=== PATIENT | male | born 1965 | race American Indian/Alaskan Native ===

== ENCOUNTER 2016-05-29 19:44 | Emergency (ER) | payer MEDICAID ==
[2016-05-29 20:26] VITALS: BP 138/90
[2016-05-30] MEDS ORDERED: BACTRIM DS PO ONE (01:38)
[2016-05-30] MEDS ORDERED: KEFLEX PO ONE (01:39)
[2016-05-30] MEDS ORDERED: XYLOCAINE 2%/EPI 1:100,000 INFILTRATI ONE (01:39)
[2016-05-30] MEDS ORDERED: MOTRIN PO ONE (01:39)
--- NOTE | 2016-05-30 02:44 | Emergency Department Report ---
HPI - General Chief Complaint: Animal Bite Time Seen by Provider: 05/30/16 00:46 - HPI HPI: 50-year-old male past medical history none presents with complaint of 2 weeks of small abscess to the left lateral calf region and left thigh region. Patient states he may have been bitten by a spider, has noticed some spontaneous pus drainage from site, tender to touch. Denies any fever or chills no significant swelling of extremity, ambulating well without any assistance. States he saw a spider in his home near his bedroom but has not actually seen 1 biting his skin actively. ED Past Medical Hx - Surgical History Additional Surgical History: Facial Surgery 1987 - Social History Smoking Status: Never Smoker Substance Use Type: None - Medications Home Medications: Home Medications Medication Instructions Recorded Confirmed Last Taken Type Azithromycin [Zithromax Z-OSCAR] 250 mg PO DAILY #1 pkg 08/02/14 Unknown Rx Loratadine [Claritin] 10 mg PO DAILY #30 tablet 08/02/14 Unknown Rx Promethazine /Codeine 5 ml PO Q6H PRN #150 ml 08/02/14 Unknown Rx [Phenergan/Codeine 6.25-10 mg/5 ml] predniSONE [Deltasone] 40 mg PO QDAY #10 tab 08/02/14 Unknown Rx HYDROcodone/APAP 7.5-325 [[place] 1 each PO Q6HR PRN #20 tablet 01/13/15 Unknown Rx 7.5/325] Ibuprofen [Motrin 600 MG tab] 600 mg PO Q8H PRN #40 tablet 01/13/15 Unknown Rx Neomy/Polymyx B/Hc (Otic) Soln 4 drops OD TID #1 bottle 07/02/15 Unknown Rx [Cortisporin (Otic) Soln] Cephalexin [Keflex] 500 mg PO BID #14 capsule 05/30/16 Unknown Rx Ibuprofen [Motrin] 600 mg PO Q8H PRN #25 tablet 05/30/16 Unknown Rx Sulfamethoxazole/Trimethoprim 1 each PO BID #14 tablet 05/30/16 Unknown Rx [Bactrim DS TAB] ED Review of Systems ROS: Stated complaint: SPIDER BITE LEFT LEG Other details as noted in HPI Constitutional: denies: chills, fever Eyes: denies: eye pain, eye discharge, vision change ENT: denies: ear pain, throat pain Respiratory: denies: cough, shortness of breath, wheezing Cardiovascular: denies: chest pain, palpitations Endocrine: no symptoms reported Gastrointestinal: denies: abdominal pain, nausea, diarrhea Genitourinary: denies: urgency, dysuria Musculoskeletal: denies: back pain, joint swelling, arthralgia Skin: denies: rash, lesions Neurological: denies: headache, weakness, paresthesias Psychiatric: denies: anxiety, depression Hematological/Lymphatic: denies: easy bleeding, easy bruising Physical Exam - Physical Exam Vital Signs: Vital Signs 05/29/16 20:23 Temperature 98.9 F Pulse Rate 103 H Respiratory 20 Rate Blood Pressure 138/90 O2 Sat by Pulse 98 Oximetry General: General: Well appearing, well nourished, in no distress. Oriented x 3, normal mood and affect .Ambulating without difficulty. Skin: Good turgor, no rash, unusual bruising or prominent lesions Head: Normocephalic, atraumatic, no visible or palpable masses, depressions, or scaring. Neck: Supple, without lesions, bruits, or adenopathy, thyroid non-enlarged and non-tender Heart: No cardiomegaly or thrills; regular rate and rhythm, no murmur or gallop Lungs: Clear to auscultation and percussion Abdomen: Bowel sounds normal, no tenderness, organomegaly, masses, or hernia Extremities: Small 1-2 cm abscess left lateral calf region, small 1-2 cm abscess left lateral thigh region. Tiny amount of fluctuance at each site. No significant amount of cellulitis No amputations or deformities, cyanosis, edema or varicosities, peripheral pulses intact Musculoskeletal: Normal gait and station. No misalignment, asymmetry, crepitation, defects, tenderness, masses, effusions, decreased range of motion, instability, atrophy or abnormal strength or tone in the head, neck, spine, ribs, pelvis or extremities. Neurologic: CN 2-12 normal. ED Course Vital Signs 05/29/16 20:23 Temperature 98.9 F Pulse Rate 103 H Respiratory 20 Rate Blood Pressure 138/90 O2 Sat by Pulse 98 Oximetry - I & D Left Lateral Leg Site: left lateral calf and left lateral thigh Blade Size: 11 I & D Procedure: betadine prep Progress: Area anesthetized with lidocaine with epinephrine. Small incisions made with 11 blade, tiny amount of purulent drainage from both sites, covered in 4 x 4 gauze, no packing placed procedure tolerated well minimal bleeding. - Laceration /Wound Repair Left Lateral Leg Wound Length (cm): 2 Wound Explored: clean Betadine Prep?: Yes Anesthesia: 1% Lidocaine ED Medical Decision Making - Medical Decision Making A/P: Abscesses, insect bites 1-Bactrim and Keflex twice a day 1 week. Small surrounding areas of erythema by both sites will cover empirically 2-Motrin 600 mg when necessary for pain 3-I advised patient to return to the ED if abscess reaccumulate's if leg becomes red erythematous and cellulitic, if he develops fever or chills 4-follow-up with primary care doctor Critical care attestation.: If time is entered above; I have spent that time in minutes in the direct care of this critically ill patient, excluding procedure time. ED Disposition Clinical Impression: Abscess Disposition: DISCHARGED TO HOME OR SELFCARE Is pt being admited?: No Does the pt Need Aspirin: No Condition: Stable Instructions: Abscess Incision and Drainage (ED), Cellulitis (ED) Prescriptions: Sulfamethoxazole/Trimethoprim [Bactrim DS TAB] 1 each PO BID #14 tablet Cephalexin [Keflex] 500 mg PO BID #14 capsule Ibuprofen [Motrin] 600 mg PO Q8H PRN #25 tablet PRN Reason: Pain Referrals: PRIMARY CARE, [Primary Care Provider] - 3-5 Days [facility] [Outside] - 3-5 Days Forms: Work/School Release Form(ED) Time of Disposition: 02:46
== END 2016-05-30 02:52 | disposition home or self-care (01) ==
LOC: ED 19:44
DX: L02.416 Cutaneous abscess of left lower limb (principal)

== ENCOUNTER 2016-10-13 00:32 | Emergency (ER) | payer MEDICAID ==
[2016-10-13 00:47] VITALS: BP 154/98
--- NOTE | 2016-10-13 03:08 | Emergency Department Report ---
Eye Injury/Foreign Body - HPI Eye Location: Left Severity: Moderate Eye Symptoms: Eye Pain: Yes, Blurred Vision: No, Eye Redness: Yes, Grinding/ Hammering Metal: No, Contact Lens Use: No, Recalls Injury: No, Photophobia: No Other History: Patient comes into the ER today with complaints of left eye pain for the past 2 weeks. Patient denies any injury. Patient denies any visual changes. Patient denies any nasal or sinus congestion. Patient does state that the eye has been watering clear fluid for the past couple weeks and is more tender medially near his nose. Patient denies any fever, chills, nosebleeds. Patient did buy some [id number] eyedrops today and states they have not been anything to help. ED Review of Systems ROS: Stated complaint: LEFT EYE PAIN Other details as noted in HPI Constitutional: denies: chills, fever Eyes: denies: eye pain, eye discharge, vision change ENT: denies: ear pain, throat pain, dental pain, epistaxis, congestion Respiratory: denies: cough, shortness of breath, wheezing Cardiovascular: denies: chest pain, palpitations Endocrine: no symptoms reported Gastrointestinal: denies: abdominal pain, nausea, diarrhea Genitourinary: denies: urgency, dysuria Musculoskeletal: denies: back pain, joint swelling, arthralgia Skin: denies: rash, lesions Neurological: denies: headache, weakness, paresthesias Psychiatric: denies: anxiety, depression Hematological/Lymphatic: denies: easy bleeding, easy bruising ED Past Medical Hx - Surgical History Additional Surgical History: Facial Surgery 1987 - Social History Smoking Status: Current Every Day Smoker Substance Use Type: None - Medications Home Medications: Home Medications Medication Instructions Recorded Confirmed Last Taken Type Cephalexin [Keflex] 500 mg PO TID #30 capsule 10/13/16 Unknown Rx Polymyxin B Sulf/Trimethoprim 2 drop OP TID #10 ml 10/13/16 Unknown Rx [Polytrim Eye Drops 77406rzlav/0.1%] traMADol [Ultram 50 MG tab] 50 mg PO Q4HR PRN #30 tablet 10/13/16 Unknown Rx Eye Injury Exam - Exam General: Vital signs noted. No distress. Alert and acting appropriately. ED Course Vital Signs 10/13/16 00:45 Temperature 97.8 F Pulse Rate 78 Respiratory 20 Rate Blood Pressure 154/98 O2 Sat by Pulse 99 Oximetry ED Medical Decision Making - Medical Decision Making Patient is nontoxic and hemodynamically stable. Patient's physical exam is consistent with left eye dacryocystitis. I will start patient on antibiotics accordingly and refer patient to ophthalmology as needed. Patient is stable for discharge and is agreement with treatment plan. Critical care attestation.: If time is entered above; I have spent that time in minutes in the direct care of this critically ill patient, excluding procedure time. ED Disposition Clinical Impression: Dacryocystitis, left Disposition: DISCHARGED TO HOME OR SELFCARE Is pt being admited?: No Does the pt Need Aspirin: No Condition: Good Instructions: Blocked Tear Duct (ED) Prescriptions: Cephalexin [Keflex] 500 mg PO TID #30 capsule Polymyxin B Sulf/Trimethoprim [Polytrim Eye Drops 33084tglat/0.1%] 2 drop OP TID #10 ml traMADol [Ultram 50 MG tab] 50 mg PO Q4HR PRN #30 tablet PRN Reason: Pain Referrals: PRIMARY CARE, [Primary Care Provider] - 3-5 Days DODIE MENDEZ MD [Staff Physician] - 3-5 Days Time of Disposition: 03:12 ED General adult EXAM - General General appearance: alert Limitations: No Limitations - Head Head exam: Positive: atraumatic, normocephalic, normal inspection - Eye Eye exam: normal appearance, PERRL, EOMI, other (mild amount of erythematous, swelling, tenderness noted to inferior left medial lid with clear tears noted. No foreign body appreciated during examination.) Extraocular Movement: Normal Pupils: Positive: normal accommodation - ENT ENT exam: Positive: normal exam, normal orophraynx, mucous membranes moist, TM' s normal bilaterally, normal external ear exam - Neck Neck exam: Positive: normal inspection, full ROM. Negative: tenderness, lymphadenopathy - Respiratory Respiratory exam: Positive: normal lung sounds bilaterally. Negative: respiratory distress - Cardiovascular Cardiovascular Exam: Positive: regular rate, normal rhythm - GI/Abdominal GI/Abdominal exam: Positive: soft. Negative: distended, tenderness - Extremities Extremities exam: Positive: normal inspection - Back Back exam: normal inspection, full ROM - Neurological Neurological exam: Positive: alert, oriented X3, CN II-XII intact - Psychiatric Psychiatric exam: Positive: normal affect, normal mood - Skin Skin exam: Positive: warm, dry, intact
== END 2016-10-13 03:20 | disposition home or self-care (01) ==
LOC: ED 00:32
DX: H04.302 Unspecified dacryocystitis of left lacrimal passage (principal); F17.200 Nicotine dependence, unspecified, uncomplicated
CPT/HCPCS: 99282

== ENCOUNTER 2017-04-17 07:36 | Emergency (ER) | payer MEDICAID ==
[2017-04-17 07:46] VITALS: BP 118/76
[2017-04-17] MEDS ORDERED: FUL-GLO OP ONE (09:57)
[2017-04-17] MEDS ORDERED: MOTRIN PO ONE (09:58)
--- NOTE | 2017-04-17 11:00 | Emergency Department Report ---
ED Eye Problem HPI - General Chief complaint: Eye Problems Stated complaint: RIGHT EYE Time Seen by Provider: 04/17/17 09:43 Source: patient Mode of arrival: Ambulatory Limitations: No Limitations - History of Present Illness chief complaint: eye pain, eye redness Onset/Timin -: days(s) Location: right eye Place: home Eye Symptoms: burning, redness, itching, discharge Severity: moderate Severity scale (0 -10): 3 If Pain, Quality: aching Consistency: constant Associated Symptoms: none Treatments Prior to Arrival: none - Related Data Previous Rx's Medication Instructions Recorded Last Taken Type Cephalexin [Keflex] 500 mg PO TID #30 capsule 10/13/16 Unknown Rx Polymyxin B Sulf/Trimethoprim 2 drop OP TID #10 ml 10/13/16 Unknown Rx [Polytrim Eye Drops 43058kqdif/0.1%] traMADol [Ultram 50 MG tab] 50 mg PO Q4HR PRN #30 tablet 10/13/16 Unknown Rx Glycerin/Propylene Glycol 1 drop OP Q4H PRN #1 drops 04/17/17 Unknown Rx [Artificial Tears Drops] Ibuprofen [Motrin] 800 mg PO Q8HR PRN #30 tablet 04/17/17 Unknown Rx Tobramycin 0.3% [Tobrex] 1 drop OD Q4H #1 bottle 04/17/17 Unknown Rx Allergies Allergy/AdvReac Type Severity Reaction Status Date / Time No Known Allergies Allergy Verified 08/02/14 08:43 ED Review of Systems ROS: Stated complaint: RIGHT EYE Other details as noted in HPI ED Past Medical Hx - Past Medical History Previous Medical History?: No - Surgical History Past Surgical History?: Yes Additional Surgical History: Facial Surgery 1987 - Social History Smoking Status: Current Every Day Smoker Substance Use Type: None - Medications Home Medications: Home Medications Medication Instructions Recorded Confirmed Last Taken Type Cephalexin [Keflex] 500 mg PO TID #30 capsule 10/13/16 Unknown Rx Polymyxin B Sulf/Trimethoprim 2 drop OP TID #10 ml 10/13/16 Unknown Rx [Polytrim Eye Drops 32035zuapz/0.1%] traMADol [Ultram 50 MG tab] 50 mg PO Q4HR PRN #30 tablet 10/13/16 Unknown Rx Glycerin/Propylene Glycol 1 drop OP Q4H PRN #1 drops 04/17/17 Unknown Rx [Artificial Tears Drops] Ibuprofen [Motrin] 800 mg PO Q8HR PRN #30 tablet 04/17/17 Unknown Rx Tobramycin 0.3% [Tobrex] 1 drop OD Q4H #1 bottle 04/17/17 Unknown Rx ED Physical Exam - General Limitations: No Limitations ED Course Vital Signs 04/17/17 07:42 Temperature 99.4 F Pulse Rate 88 Respiratory 20 Rate Blood Pressure 118/76 O2 Sat by Pulse 100 Oximetry Critical care attestation.: If time is entered above; I have spent that time in minutes in the direct care of this critically ill patient, excluding procedure time. ED Disposition Clinical Impression: Conjunctivitis Qualifiers: Conjunctivitis type: acute Acute conjunctivitis type: unspecified Laterality: right Qualified Code(s): H10.31 - Unspecified acute conjunctivitis, right eye Disposition: DC-01 TO HOME OR SELFCARE Is pt being admited?: No Does the pt Need Aspirin: No Condition: Stable Instructions: Conjunctivitis (ED) Prescriptions: Glycerin/Propylene Glycol [Artificial Tears Drops] 1 drop OP Q4H PRN #1 drops PRN Reason: Dry Eye(S) Ibuprofen [Motrin] 800 mg PO Q8HR PRN #30 tablet PRN Reason: Pain Tobramycin 0.3% [Tobrex] 1 drop OD Q4H #1 bottle Referrals: [facility] [Outside] - 3-5 Days [facility] [Provider Group] - 3-5 Days Forms: Work/School Release Form(ED) Time of Disposition: 11:00
== END 2017-04-17 11:09 | disposition home or self-care (01) ==
LOC: ED 07:36
DX: H10.31 Unspecified acute conjunctivitis, right eye (principal); F17.200 Nicotine dependence, unspecified, uncomplicated
CPT/HCPCS: 99282

== ENCOUNTER 2018-08-04 19:06 | Emergency (ER) | payer MEDICAID ==
--- NOTE | 2018-08-04 19:35 | Emergency Department Report ---
ED Lower Extremity HPI - General Chief Complaint: Wound/Laceration Stated Complaint: CUT ON R HAND Time Seen by Provider: 08/04/18 19:27 Source: patient Mode of arrival: Ambulatory Limitations: No Limitations - History of Present Illness MD Complaint: foot injury -: days(s) (4) Injury: Foot: Right (cut the bottom of right foot broken plastic) Type of Injury: laceration Place: home Severity: mild Improves With: nothing Worsens With: movement, palpation Context: direct blow Associated Symptoms: swelling, able to partially bear weight - Related Data Previous Rx's Medication Instructions Recorded Last Taken Type Cephalexin [Keflex] 500 mg PO TID #30 capsule 10/13/16 Unknown Rx Polymyxin B Sulf/Trimethoprim 2 drop OP TID #10 ml 10/13/16 Unknown Rx [Polytrim Eye Drops 74579fwjju/0.1%] traMADol [Ultram 50 MG tab] 50 mg PO Q4HR PRN #30 tablet 10/13/16 Unknown Rx Glycerin/Propylene Glycol 1 drop OP Q4H PRN #1 drops 04/17/17 Unknown Rx [Artificial Tears Drops] Ibuprofen [Motrin] 800 mg PO Q8HR PRN #30 tablet 04/17/17 Unknown Rx Tobramycin 0.3% [Tobrex] 1 drop OD Q4H #1 bottle 04/17/17 Unknown Rx Cetirizine HCl [ZyrTEC] 10 mg PO DAILY #30 capsule 01/30/18 Unknown Rx Ibuprofen 800 mg PO TID PRN #30 tablet 01/30/18 Unknown Rx Moxifloxacin HCl [Moxifloxacin] 1 drop OP QID 7 Days #2 ml 01/30/18 Unknown Rx Chlorhexidine Gluconate [Hibiclens] 10 ml TP BID #240 liquid 08/04/18 Unknown Rx Ketorolac [Toradol] 10 mg PO Q6H PRN #15 tablet 08/04/18 Unknown Rx Sulfamethoxazole/Trimethoprim 1 each PO BID #20 tablet 08/04/18 Unknown Rx [Bactrim Ds] cephALEXin [Keflex] 500 mg PO Q6HR #40 capsule 08/04/18 Unknown Rx Allergies Allergy/AdvReac Type Severity Reaction Status Date / Time No Known Allergies Allergy Verified 08/02/14 08:43 ED Review of Systems ROS: Stated complaint: CUT ON R HAND Other details as noted in HPI Constitutional: denies: chills, fever Eyes: denies: eye pain, eye discharge, vision change ENT: denies: ear pain, throat pain Respiratory: denies: cough, shortness of breath, wheezing Cardiovascular: denies: chest pain, palpitations Endocrine: no symptoms reported Gastrointestinal: denies: abdominal pain, nausea, diarrhea Genitourinary: denies: urgency, dysuria Musculoskeletal: denies: back pain, joint swelling, arthralgia Skin: change in color. denies: rash, lesions Neurological: denies: headache, weakness, paresthesias Psychiatric: denies: anxiety, depression Hematological/Lymphatic: denies: easy bleeding, easy bruising ED Past Medical Hx - Surgical History Additional Surgical History: Facial Surgery 1987 - Social History Smoking Status: Never Smoker Substance Use Type: None - Medications Home Medications: Home Medications Medication Instructions Recorded Confirmed Last Taken Type Cephalexin [Keflex] 500 mg PO TID #30 capsule 10/13/16 Unknown Rx Polymyxin B Sulf/Trimethoprim 2 drop OP TID #10 ml 10/13/16 Unknown Rx [Polytrim Eye Drops [id number]/0.1%] traMADol [Ultram 50 MG tab] 50 mg PO Q4HR PRN #30 tablet 10/13/16 Unknown Rx Glycerin/Propylene Glycol 1 drop OP Q4H PRN #1 drops 04/17/17 Unknown Rx [Artificial Tears Drops] Ibuprofen [Motrin] 800 mg PO Q8HR PRN #30 tablet 04/17/17 Unknown Rx Tobramycin 0.3% [Tobrex] 1 drop OD Q4H #1 bottle 04/17/17 Unknown Rx Cetirizine HCl [ZyrTEC] 10 mg PO DAILY #30 capsule 01/30/18 Unknown Rx Ibuprofen 800 mg PO TID PRN #30 tablet 01/30/18 Unknown Rx Moxifloxacin HCl [Moxifloxacin] 1 drop OP QID 7 Days #2 ml 01/30/18 Unknown Rx Chlorhexidine Gluconate [Hibiclens] 10 ml TP BID #240 liquid 08/04/18 Unknown Rx Ketorolac [Toradol] 10 mg PO Q6H PRN #15 tablet 08/04/18 Unknown Rx Sulfamethoxazole/Trimethoprim 1 each PO BID #20 tablet 08/04/18 Unknown Rx [Bactrim Ds] cephALEXin [Keflex] 500 mg PO Q6HR #40 capsule 08/04/18 Unknown Rx ED Physical Exam - General Limitations: No Limitations General appearance: alert, in no apparent distress - Head Head exam: Present: atraumatic, normocephalic - Eye Eye exam: Present: normal appearance - ENT ENT exam: Present: mucous membranes moist - Neck Neck exam: Present: normal inspection - Respiratory Respiratory exam: Present: normal lung sounds bilaterally. Absent: respiratory distress - Cardiovascular Cardiovascular Exam: Present: regular rate, normal rhythm. Absent: systolic murmur, diastolic murmur, rubs, gallop - GI/Abdominal GI/Abdominal exam: Present: soft, normal bowel sounds - Rectal Rectal exam: Present: deferred - Extremities Exam Extremities exam: Present: normal inspection - Expanded Lower Extremity Exam Right 1 - avulsed skin and local celllulitis wtih swelling. no discharge - Back Exam Back exam: Present: normal inspection - Neurological Exam Neurological exam: Present: alert, oriented X3 - Psychiatric Psychiatric exam: Present: normal affect, normal mood - Skin Skin exam: Present: warm, dry, intact, normal color. Absent: rash Critical care attestation.: If time is entered above; I have spent that time in minutes in the direct care of this critically ill patient, excluding procedure time. ED Disposition Clinical Impression: Laceration of foot Disposition: DC-01 TO HOME OR SELFCARE Is pt being admited?: No Does the pt Need Aspirin: No Condition: Stable Instructions: Laceration (ED), Acute Wound Care (ED), Wound Infection (ED) Prescriptions: Sulfamethoxazole/Trimethoprim [Bactrim Ds] 1 each PO BID #20 tablet Chlorhexidine Gluconate [Hibiclens] 10 ml TP BID #240 liquid cephALEXin [Keflex] 500 mg PO Q6HR #40 capsule Ketorolac [Toradol] 10 mg PO Q6H PRN #15 tablet PRN Reason: Pain Referrals: [facility] [Provider Group] - 3-5 Days
[2018-08-04 19:39] VITALS: BP 125/78
== END 2018-08-04 19:44 | disposition home or self-care (01) ==
LOC: ED 19:06
DX: S91.311A Laceration without foreign body, right foot, initial encounter (principal); W45.8XXA Other foreign body or object entering through skin, initial encounter; Y93.89 Activity, other specified; Y92.89 Other specified places as the place of occurrence of the external cause; Y99.8 Other external cause status
CPT/HCPCS: 99282

== ENCOUNTER 2018-08-27 12:27 | Emergency (ER) | payer MEDICAID ==
--- NOTE | 2018-08-27 13:05 | Emergency Department Report ---
Blank Doc - Documentation Documentation: This is a 52-year-old male that presents with left eye pain and redness. Denies flutters or visual changes. This initial assessment/diagnostic orders/clinical plan/treatment(s) is/are subject to change based on patient's health status, clinical progression and re- assessment by fellow clinical providers in the ED. Further treatment and workup at subsequent clinical providers discretion. Patient/guardians urged not to elope from the ED as their condition may be serious if not clinically assessed and managed. Initial orders include: 1- Patient sent to [facility] for further evaluation and treatment 2- brown lamps/visual activity
--- NOTE | 2018-08-27 13:48 | Emergency Department Report ---
[facility] Chief Complaint: Eye Problems Stated Complaint: LT EYE PAIN/ITCHING Time Seen by Provider: 08/27/18 13:04 Duration: 3 Days Side: Left Severity: moderate Symptoms: Yes Eye Itching (left), Yes Eye Redness (left), Yes Mucous Drainage (left), Yes Blurred Vision (left), No Eye Pain, No Purulent Drainage, No Preceding URI, No H/O Allergic Rhinitis, No Contact Lens Use, No Trauma, No Fever, No Headache Other History: This is a 52-year-old -Italian male who presents with left eye irritation, itching, and swelling for 2-3 days. Patient states he does wear glasses, no contacts. There is blurriness and left eye and redness. He denied grinding sensation, purulent discharge. ED Review of Systems ROS: Stated complaint: LT EYE PAIN/ITCHING Other details as noted in HPI Constitutional: denies: chills, fever Eyes: eye discharge (left eye). denies: eye pain, vision change ENT: denies: ear pain, throat pain Respiratory: denies: cough, shortness of breath, wheezing Cardiovascular: denies: chest pain, palpitations Gastrointestinal: denies: abdominal pain, nausea, diarrhea Skin: denies: rash, lesions Neurological: denies: headache, weakness, paresthesias Psychiatric: denies: anxiety, depression ED Past Medical Hx - Past Medical History Previous Medical History?: Yes Additional medical history: CAD - Surgical History Additional Surgical History: Facial Surgery 1987 - Social History Smoking Status: Never Smoker Substance Use Type: None - Medications Home Medications: Home Medications Medication Instructions Recorded Confirmed Last Taken Type Cephalexin [Keflex] 500 mg PO TID #30 capsule 10/13/16 Unknown Rx Polymyxin B Sulf/Trimethoprim 2 drop OP TID #10 ml 10/13/16 Unknown Rx [Polytrim Eye Drops [id number]/0.1%] traMADol [Ultram 50 MG tab] 50 mg PO Q4HR PRN #30 tablet 10/13/16 Unknown Rx Glycerin/Propylene Glycol 1 drop OP Q4H PRN #1 drops 04/17/17 Unknown Rx [Artificial Tears Drops] Ibuprofen [Motrin] 800 mg PO Q8HR PRN #30 tablet 04/17/17 Unknown Rx Tobramycin 0.3% [Tobrex] 1 drop OD Q4H #1 bottle 04/17/17 Unknown Rx Cetirizine HCl [ZyrTEC] 10 mg PO DAILY #30 capsule 01/30/18 Unknown Rx Ibuprofen 800 mg PO TID PRN #30 tablet 01/30/18 Unknown Rx Moxifloxacin HCl [Moxifloxacin] 1 drop OP QID 7 Days #2 ml 01/30/18 Unknown Rx Chlorhexidine Gluconate [Hibiclens] 10 ml TP BID #240 liquid 08/04/18 Unknown Rx Ketorolac [Toradol] 10 mg PO Q6H PRN #15 tablet 08/04/18 Unknown Rx Sulfamethoxazole/Trimethoprim 1 each PO BID #20 tablet 08/04/18 Unknown Rx [Bactrim Ds] cephALEXin [Keflex] 500 mg PO Q6HR #40 capsule 08/04/18 Unknown Rx Azithromycin(Nf)1% Ophth Soln 1 drops OS QDAY 5 Days #1 bottle 08/27/18 Unknown Rx [Azasite 1% Ophth Soln] [facility] Exam - Exam General: Vital signs noted. No distress. Alert and acting appropriately. Eye Exam: Left Injection, Left Chemosis, Left Mucous Discharge, Both EOMI, Neither Abnormal Pupil, Neither Eye Foreign Body, Neither Lid Foreign Body, Neither Purulent Discharge, Neither Fluorescein Uptake, Neither Fluorescein Uptake (slit lamp), Neither Cell/Flare (slit lamp), Neither Corneal Edema, Neither Photophobia HEENT: No Nasal Congestion, No Pharyngeal Erythema Remainder of HEENT: Normal Lungs: Yes Clear Lung Sounds, Yes Good Air Exchange, No Wheezes, No Stridor, No Cough, No Nasal Flaring, No Retractions, No Use of Accessory Muscles ED Course Vital Signs 08/27/18 13:03 Temperature 97.8 F Pulse Rate 75 Respiratory 18 Rate Blood Pressure 128/77 O2 Sat by Pulse 100 Oximetry ED Medical Decision Making - Medical Decision Making This is a 51 month old male that presents with left pink eye with mucous discharge for 3 days. Patient is stable and was examined by me. Vitals normal. Visual acuity, bilateral 20/20, right 20/20, and left 20/25. Physical assessment susceptible of conjunctivitis on the left. Start azithromycin drops. Discussed plan with patient and he agreed with plan. Discharged home in stable condition. Follow up with PCP in 24-72 hours. Critical care attestation.: If time is entered above; I have spent that time in minutes in the direct care of this critically ill patient, excluding procedure time. ED Disposition Clinical Impression: Conjunctivitis Qualifiers: Conjunctivitis type: acute Acute conjunctivitis type: bacterial Laterality: left Qualified Code(s): H10.32 - Unspecified acute conjunctivitis, left eye Disposition: - TO HOME OR SELFCARE Is pt being admited?: No Does the pt Need Aspirin: No Condition: Stable Instructions: Conjunctivitis (ED) Additional Instructions: Pinkeye is very contagious so please wash hands frequently. Don't share any towels or bedding to prevent spread of infection. Follow up with primary care provider in 24-72 hours. Use cool compress to each eye to decrease swelling. Avoid rubbing or touching eyes, because rubbing eyes can cause worsening symptoms. Take medication as prescribed. Return to ER if swelling don't improve or difficulty breathing after 2 days of medication. Prescriptions: Azithromycin(Nf)1% Ophth Soln [Azasite 1% Ophth Soln] 1 drops OS QDAY 5 Days #1 bottle Referrals: ASHLEY STEWART MD [Primary Care Provider] - 3-5 Days [facility] [Provider Group] - 3-5 Days [facility] [Provider Group] - 3-5 Days Forms: Work/School Release Form(ED) Time of Disposition: 15:04
[2018-08-27 15:38] VITALS: BP 123/70
== END 2018-08-27 15:37 | disposition home or self-care (01) ==
LOC: ED 12:27
DX: H10.32 Unspecified acute conjunctivitis, left eye (principal); I25.10 Atherosclerotic heart disease of native coronary artery without angina pectoris
CPT/HCPCS: 99282

== ENCOUNTER 2018-08-28 16:47 | Emergency (ER) | payer MEDICAID ==
[2018-08-28 16:54] VITALS: BP 113/86
--- NOTE | 2018-08-28 16:58 | Emergency Department Report ---
Eye Injury/Foreign Body - HPI Duration: 3 Days Eye Location: Bilateral Severity: Mild Tetanus Status: Up to Date Eye Symptoms: Eye Pain: No, Blurred Vision: No, Eye Redness: Yes, Grinding/Hammering Metal: No, Used Eye Protection: No, Contact Lens Use: No, Recalls Injury: No, Photophobia: No Other History: HERE YEST W SAME. DROPS NOT WORKING AND STINGING. DRAINAGE FROM EYE. VSS. NO FEVER. NO VISION CHANGE ED Review of Systems ROS: Stated complaint: LEFT EYE ALLERGIC REACTION Other details as noted in HPI Comment: All other systems reviewed and negative Constitutional: denies: chills Eyes: as per HPI, eye discharge. denies: eye pain, vision change ENT: denies: ear pain Respiratory: denies: see HPI Cardiovascular: denies: palpitations Endocrine: denies: see HPI Gastrointestinal: denies: abdominal pain Genitourinary: denies: urgency Musculoskeletal: denies: back pain Skin: denies: rash Neurological: denies: headache Psychiatric: denies: depression Hematological/Lymphatic: denies: easy bleeding ED Past Medical Hx - Past Medical History Previous Medical History?: Yes Hx Hypertension: Yes Additional medical history: CAD - Surgical History Past Surgical History?: Yes Additional Surgical History: Facial Surgery 1987. cardiac stent - Family History Family history: no significant - Social History Smoking Status: Never Smoker Substance Use Type: None - Medications Home Medications: Home Medications Medication Instructions Recorded Confirmed Last Taken Type Azithromycin(Nf)1% Ophth Soln 1 drops OS QDAY 5 Days #1 bottle 08/27/18 Unknown Rx [Azasite 1% Ophth Soln] Azithromycin [Zithromax Z-OSCAR] 250 mg PO DAILY #6 tablet 08/28/18 Unknown Rx Cetirizine HCl [ZyrTEC] 10 mg PO DAILY #30 capsule 08/28/18 Unknown Rx Fluticasone [Flonase] 1 spray NS QDAY #1 bottle 08/28/18 Unknown Rx Eye Injury Exam - Exam General: Vital signs noted. No distress. Alert and acting appropriately. ED Course Vital Signs 08/28/18 16:53 Temperature 98.2 F Pulse Rate 95 H Respiratory 16 Rate Blood Pressure 113/86 [Right] O2 Sat by Pulse 99 Oximetry ED Medical Decision Making - Medical Decision Making ADDED [place] PT ENCOURAGED TO CONTINUE HIS DROPS VSS NAD NO VISION CHANGE Vital Signs (72 hours) 08/28/18 16:53 Temperature 98.2 F Pulse Rate 95 H Respiratory 16 Rate Blood Pressure 113/86 [Right] O2 Sat by Pulse 99 Oximetry Critical care attestation.: If time is entered above; I have spent that time in minutes in the direct care of this critically ill patient, excluding procedure time. ED Disposition Clinical Impression: Conjunctivitis Disposition: DC-01 TO HOME OR SELFCARE Is pt being admited?: No Does the pt Need Aspirin: No Condition: Stable Instructions: Conjunctivitis (ED) Additional Instructions: DIET TOLERATED HYDRATE WELL WITH WATER ACTIVITY TOLERATED FOLLOW UP PCP IF PERSISTS MOTRIN OR TYLENOL FOR PAIN OR FEVER MED GIVEN TODAY CONTINUE YOUR EYE DROPS WARM COMPRESSES TO EYES MED ORDERED TODAY FOLLOW UP WITH EYE MD IF PERSISTS REFERRAL BELOW Prescriptions: Fluticasone [Flonase] 1 spray NS QDAY #1 bottle Azithromycin [Zithromax Z-OSCAR] 250 mg PO DAILY #6 tablet Cetirizine HCl [ZyrTEC] 10 mg PO DAILY #30 capsule Referrals: UMM SCOTT DO [Staff Physician] - 3-5 Days Time of Disposition: 16:58
== END 2018-08-28 17:00 | disposition home or self-care (01) ==
LOC: ED 16:47
DX: H10.9 Unspecified conjunctivitis (principal); I10 Essential (primary) hypertension
CPT/HCPCS: 99282

== ENCOUNTER 2019-01-15 02:42 | Emergency (ER) | payer MEDICAID ==
[2019-01-15 02:50] VITALS: BP 148/87
--- NOTE | 2019-01-15 04:07 | Emergency Department Report ---
[facility] Chief Complaint: Eye Problems Stated Complaint: RIGHT EYE,LEFT LEG PAIN Time Seen by Provider: 01/15/19 02:56 Side: Right Severity: moderate Symptoms: Yes Eye Itching, Yes Eye Redness, Yes Mucous Drainage, Yes Purulent Drainage, Yes H/O Allergic Rhinitis, No Blurred Vision, No Preceding URI, No Contact Lens Use, No Trauma, No Fever, No Headache Other History: pt presents for itching erythema right eye hx of conjunctivitis left eye 3 weeks ago there is no fever or chills no loss or blurred vision symptoms include itching and erythema to conjunctiva with clear yellow drainage ED Review of Systems ROS: Stated complaint: RIGHT EYE,LEFT LEG PAIN Other details as noted in HPI Constitutional: denies: chills, fever Eyes: eye discharge ENT: denies: ear pain, throat pain Respiratory: denies: cough, shortness of breath, wheezing Cardiovascular: denies: chest pain, palpitations Endocrine: no symptoms reported Gastrointestinal: denies: abdominal pain, nausea, diarrhea Genitourinary: denies: urgency, dysuria Musculoskeletal: denies: back pain, joint swelling, arthralgia Skin: denies: rash, lesions Neurological: denies: headache, weakness, paresthesias Psychiatric: denies: anxiety, depression Hematological/Lymphatic: denies: easy bleeding, easy bruising ED Past Medical Hx - Past Medical History Previous Medical History?: Yes Hx Hypertension: Yes Additional medical history: CAD - Surgical History Past Surgical History?: Yes Additional Surgical History: Facial Surgery 1987. cardiac stent - Social History Smoking Status: Current Every Day Smoker Substance Use Type: None - Medications Home Medications: Home Medications Medication Instructions Recorded Confirmed Last Taken Type Azithromycin(Nf)1% Ophth Soln 1 drops OS QDAY 5 Days #1 bottle 08/27/18 Unknown Rx [Azasite 1% Ophth Soln] Azithromycin [Zithromax Z-OSCAR] 250 mg PO DAILY #6 tablet 08/28/18 Unknown Rx Cetirizine HCl [ZyrTEC] 10 mg PO DAILY #30 capsule 08/28/18 Unknown Rx Fluticasone [Flonase] 1 spray NS QDAY #1 bottle 08/28/18 Unknown Rx Ibuprofen [Motrin 800 MG tab] 800 mg PO Q8HR PRN #30 tablet 01/15/19 Unknown Rx Ketotifen Fumarate [Zaditor] 2 drops OP BID PRN #5 ml 01/15/19 Unknown Rx Polymyxin B Sulf/Trimethoprim 2 drops OP Q3H 10 Days #10 ml 01/15/19 Unknown Rx [Polytrim Eye Drops] [facility] Exam - Exam General: Vital signs noted. No distress. Alert and acting appropriately. Eye Exam: Right Injection, Both EOMI, Both Mucous Discharge, Both Purulent Discharge, Neither Chemosis, Neither Abnormal Pupil, Neither Eye Foreign Body, Neither Lid Foreign Body, Neither Corneal Edema, Neither Photophobia HEENT: No Nasal Congestion, No Pharyngeal Erythema Remainder of HEENT: Normal Lungs: Yes Clear Lung Sounds, Yes Good Air Exchange, No Wheezes, No Stridor, No Cough, No Nasal Flaring, No Retractions, No Use of Accessory Muscles ED Course Vital Signs 01/15/19 02:45 Temperature 98.5 F Pulse Rate 85 Respiratory 20 Rate Blood Pressure 148/87 O2 Sat by Pulse 97 Oximetry ED Medical Decision Making - Medical Decision Making pt id perrla eomi mild conjunctival erythema , plan, polytrim zaditor, ibuprofen, follow up with ophthalmology, pt verbalized agreement and understanding of discharge plan. Critical care attestation.: If time is entered above; I have spent that time in minutes in the direct care of this critically ill patient, excluding procedure time. ED Disposition Clinical Impression: Conjunctivitis Qualifiers: Conjunctivitis type: acute Acute conjunctivitis type: unspecified Laterality: right Qualified Code(s): H10.31 - Unspecified acute conjunctivitis, right eye Disposition: DC-01 TO HOME OR SELFCARE Is pt being admited?: No Does the pt Need Aspirin: No Condition: Stable Instructions: Conjunctivitis (ED) Prescriptions: Ibuprofen [Motrin 800 MG tab] 800 mg PO Q8HR PRN #30 tablet PRN Reason: pain Polymyxin B Sulf/Trimethoprim [Polytrim Eye Drops] 2 drops OP Q3H 10 Days #10 ml Ketotifen Fumarate [Zaditor] 2 drops OP BID PRN #5 ml PRN Reason: itching pain Referrals: DODIE MENDEZ MD [Staff Physician] - 3-5 Days Forms: Work/School Release Form(ED) Time of Disposition: 04:12
== END 2019-01-15 04:15 | disposition home or self-care (01) ==
LOC: ED 02:42
DX: H10.31 Unspecified acute conjunctivitis, right eye (principal); I10 Essential (primary) hypertension; I25.10 Atherosclerotic heart disease of native coronary artery without angina pectoris; F17.200 Nicotine dependence, unspecified, uncomplicated
CPT/HCPCS: 99282

== ENCOUNTER 2019-03-01 22:09 | Emergency (ER) | payer MEDICAID ==
[2019-03-01 22:18] VITALS: BP 151/94
--- NOTE | 2019-03-01 22:21 | Emergency Department Report ---
Blank Doc - Documentation Documentation: 53-year-old male that presents with dysuria and hematuria. This initial assessment/diagnostic orders/clinical plan/treatment(s) is/are subject to change based on patient's health status, clinical progression and re- assessment by fellow clinical providers in the ED. Further treatment and workup at subsequent clinical providers discretion. Patient/guardians urged not to elope from the ED as their condition may be serious if not clinically assessed and managed. Initial orders include: 1- Patient sent to [facility] for further evaluation and treatment 2- UA
[2019-03-01 22:55] LABS: Bilirubin,Urine NEG (Negative); Blood,Urine LG (Negative); Color,Urine Red (Yellow)
[2019-03-01 23:03] LABS: RBC,Urine > 182.0 /HPF (0.0-6.0); WBC,Urine > 182.0 /HPF (0.0-6.0)
[2019-03-01 23:18] LABS: Mean Corpuscular HGB Conc 37 % (32-34); Mean Corpuscular Volume 90 fl (84-94); Platelet Count 349 K/mm3 (140-440); Red Blood Count 5.19 M/mm3 (3.65-5.03); Red Cell Distribution Width 13.8 % (13.2-15.2)
[2019-03-01] MEDS ORDERED: cephALEXin 500 MG CAP PO ONE (23:32)
[2019-03-01 23:41] LABS: Hematocrit 46.9 % (35.5-45.6); Hemoglobin 17.2 gm/dl (11.8-15.2)
[2019-03-01 23:45] LABS: BUN/Creatinine Ratio 11; Blood Urea Nitrogen 12 mg/dL (9-20); Hemolysis Index 22
--- NOTE | 2019-03-02 00:15 | Cat Scan Report ---
CT ABDOMEN AND PELVIS WITHOUT CONTRAST INDICATION / CLINICAL INFORMATION: MAIN: LOWER ABDOMINAL PAIN. GROSS hematuria. TECHNIQUE: Axial CT images were obtained through the abdomen and pelvis without IV contrast. All CT scans at [facility] are performed using CT dose reduction for ALARA by means of automated exposure control. COMPARISON: None available. FINDINGS: LOWER CHEST: A 4 mm pulmonary nodule is seen in the right middle lobe as well as in the lingula. LIVER: A few subcentimeter low density hepatic lesions are too small to characterize. GALLBLADDER: No significant abnormality. BILE DUCTS: No significant abnormality. PANCREAS: No significant abnormality. SPLEEN: No significant abnormality. ADRENALS: No significant abnormality. RIGHT KIDNEY and URETER: Subcentimeter low density in the right kidney, too small to characterize but statistically benign. LEFT KIDNEY and URETER: No significant abnormality. STOMACH and SMALL BOWEL: No significant abnormality. COLON: No significant abnormality. APPENDIX: No significant abnormality. PERITONEUM: No free fluid. No free air. No fluid collection. LYMPH NODES: No significant adenopathy. AORTA and ARTERIES: No significant abnormality. IVC and VEINS: No significant abnormality. URINARY BLADDER: Mild circumferential bladder wall thickening, accentuated by underdistention. REPRODUCTIVE ORGANS: There is suggestion of irregular soft tissue thickening of the partially visuali zed right dorsal aspect of the penis. ADDITIONAL FINDINGS: None. SKELETAL SYSTEM: No significant abnormality. IMPRESSION: 1. No hydronephrosis or nephrolithiasis. 2. Irregular soft tissue thickening of the partially visualized right dorsal aspect of the penis. Rec ommend correlation with physical exam to evaluate for possible cutaneous lesion. 3. Mild circumferential bladder wall thickening, correlate with urinalysis for possible cystitis. 4. Two 4 mm pulmonary nodules. If patient is low risk for pulmonary malignancy, no follow-up required ; if high risk, consider follow-up chest CT in 12 months. 5. A few subcentimeter low density hepatic lesions are too small to characterize, but in the absence of known malignancy these are statistically benign. Signer Name: Marylin Walker MD Signed: 03/02/2019 12:10 AM Workstation Name: [id number]
--- NOTE | 2019-03-02 00:29 | Emergency Department Report ---
ED Male HPI - General Chief complaint: Abdominal Pain Stated complaint: ABDOMINAL PAIN BLOOD IN URINE Time Seen by Provider: 03/01/19 22:21 Source: patient Mode of arrival: Ambulatory Limitations: No Limitations - History of Present Illness Initial comments: 53-year-old male with a past medical history hypertension currently on verapamil presents to the hospital complaining of abdominal pain and hematuria. Contrary to triage patient denies history of cardiac stent placement. He does not take any anticoagulants including aspirin or Plavix. This evening he had gross hematuria with abdominal sharp pressure. In the ED he had small clots coming out his penis with urination as well. Patient denies difficulty urinating and complains of increased frequency. No fever, nausea, vomiting, or trauma reported. He denies dysuria hematuria or prostate issues. - Related Data Previous Rx's Medication Instructions Recorded Last Taken Type Azithromycin(Nf)1% Ophth Soln 1 drops OS QDAY 5 Days #1 bottle 08/27/18 Unknown Rx [Azasite 1% Ophth Soln] Azithromycin [Zithromax Z-OSCAR] 250 mg PO DAILY #6 tablet 08/28/18 Unknown Rx Cetirizine HCl [ZyrTEC] 10 mg PO DAILY #30 capsule 08/28/18 Unknown Rx Fluticasone [Flonase] 1 spray NS QDAY #1 bottle 08/28/18 Unknown Rx Ibuprofen [Motrin 800 MG tab] 800 mg PO Q8HR PRN #30 tablet 01/15/19 Unknown Rx Ketotifen Fumarate [Zaditor] 2 drops OP BID PRN #5 ml 01/15/19 Unknown Rx Polymyxin B Sulf/Trimethoprim 2 drops OP Q3H 10 Days #10 ml 01/15/19 Unknown Rx [Polytrim Eye Drops] cephALEXin [Keflex] 500 mg PO Q12HR #14 cap 03/02/19 Unknown Rx Allergies Allergy/AdvReac Type Severity Reaction Status Date / Time No Known Allergies Allergy Verified 08/02/14 08:43 ED Review of Systems ROS: Stated complaint: ABDOMINAL PAIN BLOOD IN URINE Other details as noted in HPI Comment: All other systems reviewed and negative ED Past Medical Hx - Past Medical History Hx Hypertension: Yes Additional medical history: CAD - Surgical History Additional Surgical History: Facial Surgery 1987. cardiac stent - Social History Smoking Status: Former Smoker Substance Use Type: None - Medications Home Medications: Home Medications Medication Instructions Recorded Confirmed Last Taken Type Azithromycin(Nf)1% Ophth Soln 1 drops OS QDAY 5 Days #1 bottle 08/27/18 Unknown Rx [Azasite 1% Ophth Soln] Azithromycin [Zithromax Z-OSCAR] 250 mg PO DAILY #6 tablet 08/28/18 Unknown Rx Cetirizine HCl [ZyrTEC] 10 mg PO DAILY #30 capsule 08/28/18 Unknown Rx Fluticasone [Flonase] 1 spray NS QDAY #1 bottle 08/28/18 Unknown Rx Ibuprofen [Motrin 800 MG tab] 800 mg PO Q8HR PRN #30 tablet 01/15/19 Unknown Rx Ketotifen Fumarate [Zaditor] 2 drops OP BID PRN #5 ml 01/15/19 Unknown Rx Polymyxin B Sulf/Trimethoprim 2 drops OP Q3H 10 Days #10 ml 01/15/19 Unknown Rx [Polytrim Eye Drops] cephALEXin [Keflex] 500 mg PO Q12HR #14 cap 03/02/19 Unknown Rx ED Physical Exam - General Limitations: No Limitations - Other Other exam information: Gen.: No acute distress Head: Atraumatic Eyes: Normal appearance ENT: Moist mucous membranes Neck: Normal appearance, no posterior midline tenderness, no meningismus Chest: Clear to auscultation bilaterally Cardiovascular: Regular rate and rhythm Abdomen: Normal appearance, soft, nontender nondistended bladder on exam, no rebound or guarding, normal bowel sounds : Circumcised, large wart/cauliflower appearing lesion to base of dorsal p bouchra. Selvin as per patient and progressively worsening size. Never had it evaluated by a physician. No penile discharge. No testicular pain or epididymal pain or swelling. Back: Normal appearance, nontender Extremity: Full range of motion, normal appearance Neuro: Alert, clear speech, no focal motor or sensory deficit Psychiatric: Appropriate Skin: No rash ED Course Vital Signs 03/01/19 03/01/19 22:17 22:20 Temperature 97.8 F 97.8 F Pulse Rate 92 H 92 H Respiratory 18 18 Rate Blood Pressure 151/94 Blood Pressure 151/94 [Right] O2 Sat by Pulse 98 100 Oximetry - Reevaluation(s) Reevaluation #1: 03/02/19 00:30 Patient reports that hematuria seems to be clearing up and he is urinating without difficulty. ED Medical Decision Making - Lab Data Result diagrams: 03/01/19 22:39 03/01/19 22:39 Lab Results 03/01/19 03/01/19 03/01/19 Range/Units 22:30 22:39 22:39 WBC 11.5 H (4.5-11.0) K/mm3 RBC 5.19 H (3.65-5.03) M/mm3 Hgb 17.2 H (11.8-15.2) gm/dl Hct 46.9 H (35.5-45.6) % MCV 90 (84-94) fl MCH 33 H (28-32) pg MCHC 37 H (32-34) % RDW 13.8 (13.2-15.2) % Plt Count 349 (140-440) K/mm3 Sodium 136 L (137-145) mmol/L Potassium 3.8 (3.6-5.0) mmol/L Chloride 101.8 (98-107) mmol/L Carbon Dioxide 22 (22-30) mmol/L Anion Gap 16 mmol/L BUN 12 (9-20) mg/dL Creatinine 1.1 (0.8-1.5) mg/dL Estimated GFR > 60 ml/min BUN/Creatinine Ratio 11 % Glucose 125 H (75-100) mg/dL Calcium 9.0 (8.4-10.2) mg/dL Urine Color Red (Yellow) Urine Turbidity Cloudy (Clear) Urine pH 6.0 (5.0-7.0) Ur Specific [place] 1.023 (1.003-1.030) Urine Protein 100 mg/dl (Negative) mg/dL Urine Glucose (UA) Neg (Negative) mg/dL Urine Ketones Neg (Negative) mg/dL Urine Blood Lg (Negative) Urine Nitrite Neg (Negative) Urine Bilirubin Neg (Negative) Urine Urobilinogen 2.0 (<2.0) mg/dL Ur Leukocyte Esterase Mod (Negative) Urine WBC (Auto) > 182.0 H (0.0-6.0) /HPF Urine RBC (Auto) > 182.0 (0.0-6.0) /HPF U Epithel Cells (Auto) 3.0 (0-13.0) /HPF - Radiology Data Radiology results: report reviewed CT abdomen and pelvis noncontrast: Minimal circumferential bladder wall thickening correlate for possible cystitis. Incidental findings of pulmonary nodules that'll require outpatient follow-up and soft tissue lesion on penis which is visualized on exam - Medical Decision Making Patient treated in the ED with Keflex for UTI. CT suggestive of cystitis with other incidental findings. I suspect also patient has genital/penile warts. Outpatient follow-up for further workup and evaluation will be encouraged. Antibiotics will be prescribed. - Differential Diagnosis UTI, cystitis, bladder cancer, kidney stone, renal mass Critical Care Time: No Critical care attestation.: If time is entered above; I have spent that time in minutes in the direct care of this critically ill patient, excluding procedure time. ED Disposition Clinical Impression: Acute cystitis with hematuria, Penile wart, Lung nodule < 6cm on CT Disposition: TO HOME OR SELFCARE Is pt being admited?: No Does the pt Need Aspirin: No Condition: Stable Instructions: Urinary Tract Infection in Men (ED), Genital Warts (ED), Pulmonary Nodules (ED) Additional Instructions: Take the medication as prescribed. Follow-up with your doctor or with the doctor/clinic provided. Return if symptoms worsen as indicated by your discharge instructions. Prescriptions: cephALEXin [Keflex] 500 mg PO Q12HR #14 cap Referrals: PRIMARY CAREMD [Primary Care Provider] - 3-5 Days ROBBY WOOD MD [Staff Physician] - 3-5 Days (urology) [facility] [Provider Group] - 3-5 Days (primary clinic) NHI STLOL MD [Staff Physician] - 3-5 Days (primary care doctor ) Time of Disposition: 00:40
[2019-03-02 01:56] LABS: Basophils % (Manual) 0 % (0.0-1.8); Large Platelets 1+; Platelet Estimate Consistent w Auto; RBC Morphology Normal; Total Cells Counted 100
== END 2019-03-02 00:55 | disposition home or self-care (01) ==
LOC: ED 22:09
DX: N30.01 Acute cystitis with hematuria (principal); R91.1 Solitary pulmonary nodule; A63.0 Anogenital (venereal) warts; I10 Essential (primary) hypertension; Z79.01 Long term (current) use of anticoagulants; Z79.82 Long term (current) use of aspirin; Z79.899 Other long term (current) drug therapy
CPT/HCPCS: 36415; 74176; 80048; 81001; 85007; 85025; 87086; 99284

== ENCOUNTER 2019-07-18 20:56 | Emergency (ER) | payer MEDICAID ==
[2019-07-18 21:13] VITALS: BP 127/90
--- NOTE | 2019-07-18 21:17 | Event Note ---
ED Screening Note ED Screening Note: pt presents with dry cough that began 3 days ago states he has generalized body aches states he has had a couple episodes of diarrhea today no n/v no sore throat no ear pain no SOB no fever PMHx none no known sick contacts no recent travel no allergies to meds
--- NOTE | 2019-07-18 21:20 | Emergency Department Report ---
Chief Complaint: Upper Respiratory Infection Stated Complaint: FLU SYM Time Seen by Provider: 07/18/19 21:11 - HPI History of Present Illness: pt is a 53 yo male who presents with dry cough that began 3 days ago states he has generalized body aches states he has had a couple episodes of diarrhea today no n/v no sore throat no ear pain no SOB no fever no CP PMHx none no known sick contacts no recent travel no allergies to meds Vitals are normal on exam: Non toxic appearing, no acute distress atraumatic, normocephalic normal appearance of the eyes, PERRL, EOMI, no periorbital edema or ecchymosis normal oropharynx, normal TMs and canals, no tonsilar hypertrophy or exudates, no LAD, no sinus ttp moist mucus membranes regular heart rate and rhythm, no gallops, no rubs, no murmurs breath sounds are clear bilaterally, no w/r/r A&O x4, no focal neuro deficit skin is warm, dry, intact Examination consistent with viral URI Patient is afebrile No clinical signs or symptoms of pneumonia or influenza advised pt please increase your fluid intake over the next several days. may alternate tylenol then ibuprofen every 6 hours as needed. may take mucinex or theraflu over the counter. use a humidifier. follow up with a primary care doctor in the next 3 days. return to the emergency room for any new or worsening symptoms including but not limited to fever, unable to tolerate by mouth intake, shortness of breath, cough with brown/white sputum production, etc. Medical screening examination performed and there is no threat to life or limb at this time Patient referred to a primary care physician Discussed supportive care and symptomatic treatment with patient and the importance of oral rehydration Discussed strict return precautions with patient in detail - Exam Vital Signs: Vital Signs 07/18/19 07/18/19 20:58 21:09 Temperature 98.8 F 98.8 F Pulse Rate 89 85 Respiratory 18 18 Rate Blood Pressure 127/80 127/90 O2 Sat by Pulse 96 95 Oximetry MSE screening note: Focused history and physical exam performed. ED Disposition for MSE Clinical Impression: Viral illness Disposition: Z- MED SCREENING EXAM-LEFT Is pt being admited?: No Does the pt Need Aspirin: No Condition: Stable Instructions: Viral Syndrome (ED) Additional Instructions: please increase your fluid intake over the next several days. may alternate tylenol then ibuprofen every 6 hours as needed. may take mucinex or theraflu over the counter. use a humidifier. follow up with a primary care doctor in the next 3 days. return to the emergency room for any new or worsening symptoms including but not limited to fever, unable to tolerate by mouth intake, shortness of breath, cough with brown/white sputum production, etc. Referrals: your, primary care doctor [Other] - 2-3 Days Time of Disposition: 21:18 Print Language: ZIMBABWEAN
== END 2019-07-18 21:42 | disposition left against medical advice (07) ==
LOC: ED 20:56
DX: B34.9 Viral infection, unspecified (principal); R52 Pain, unspecified; R19.7 Diarrhea, unspecified
CPT/HCPCS: 99281

== ENCOUNTER 2020-05-23 09:53 | Emergency (ER) | payer MEDICAID | END 2020-05-23 14:13 | disposition left against medical advice (07) | LOC: ED 09:53 | DX: H57.12 Ocular pain, left eye (principal); Z53.21 Procedure and treatment not carried out due to patient leaving prior to being seen by health care provider ==

== ENCOUNTER 2020-09-21 15:50 | Emergency (ER) | payer MEDICAID ==
[2020-09-21 16:14] VITALS: BP 122/90
--- NOTE | 2020-09-21 16:37 | Emergency Department Report ---
[facility] Chief Complaint: Eye Problems Stated Complaint: LT EYE PAIN, IRRATION Time Seen by Provider: 09/21/20 16:30 Duration: 3 Days Side: Left Severity: mild Symptoms: Yes Eye Itching, Yes Eye Redness, Yes Mucous Drainage, Yes Headache, No H/O Allergic Rhinitis, No Contact Lens Use, No Trauma Other History: 54-year-old -[place] Citizen male presents to the emergency room complaining of left eye that is watery itchy and crusty eyelashes x3 days. Patient states that it started to give him a headache. Patient is taking nothing for his headache or symptoms. Patient does have a primary care provider and chooses to come to the emergency room. ED Review of Systems ROS: Stated complaint: LT EYE PAIN, IRRATION Other details as noted in HPI Comment: All other systems reviewed and negative ED Past Medical Hx - Past Medical History Previous Medical History?: Yes Hx Hypertension: Yes Additional medical history: CAD - Surgical History Past Surgical History?: Yes Additional Surgical History: Facial Surgery 1987. cardiac stent - Social History Smoking Status: Current Every Day Smoker Substance Use Type: None - Medications Home Medications: Home Medications Medication Instructions Recorded Confirmed Last Taken Type Azithromycin(Nf)1% Ophth Soln 1 drops OS QDAY 5 Days #1 bottle 08/27/18 Unknown Rx [Azasite 1% Ophth Soln] Azithromycin [Zithromax Z-OSCAR] 250 mg PO DAILY #6 tablet 08/28/18 Unknown Rx Cetirizine HCl [ZyrTEC] 10 mg PO DAILY #30 capsule 08/28/18 Unknown Rx Fluticasone [Flonase] 1 spray NS QDAY #1 bottle 08/28/18 Unknown Rx Ibuprofen [Motrin 800 MG tab] 800 mg PO Q8HR PRN #30 tablet 01/15/19 Unknown Rx Ketotifen Fumarate [Zaditor] 2 drops OP BID PRN #5 ml 01/15/19 Unknown Rx cephALEXin [Keflex] 500 mg PO Q12HR #14 cap 03/02/19 Unknown Rx Polymyxin B Sulf/Trimethoprim 2 drops OP Q3H 10 Days #10 ml 09/21/20 Unknown Rx [Polytrim Eye Drops] [facility] Exam - Exam General: Vital signs noted. No distress. Alert and acting appropriately. Eye Exam: Left Injection, Left Mucous Discharge, Neither Abnormal Pupil HEENT: No Nasal Congestion, No Pharyngeal Erythema Remainder of HEENT: Normal Lungs: Yes Clear Lung Sounds, Yes Good Air Exchange ED Course Vital Signs 09/21/20 16:12 Temperature 98.6 F Pulse Rate 84 Respiratory 18 Rate Blood Pressure 122/90 [Right] O2 Sat by Pulse 96 Oximetry ED Medical Decision Making - Medical Decision Making 54-year-old -[place] Citizen male presents to the emergency room complaining of left eye that is watery itchy and crusty eyelashes x3 days. Patient states that it started to give him a headache. Patient is taking nothing for his headache or symptoms. Patient does have a primary care provider and chooses to come to the emergency room. Patient will be treated for conjunctivitis. Patient is encouraged to take his allergy medication and follow-up with his primary care provider. Critical care attestation.: If time is entered above; I have spent that time in minutes in the direct care of this critically ill patient, excluding procedure time. ED Disposition Clinical Impression: Conjunctivitis Disposition: DC-01 TO HOME OR SELFCARE Is pt being admited?: No Does the pt Need Aspirin: No Condition: Stable Instructions: How to Use Eye Drops and Eye Ointments Additional Instructions: Take your allergy medications as prescribed. Be sure medication for your eye as prescribed. Follow-up with your primary care provider. Prescriptions: Polymyxin B Sulf/Trimethoprim [Polytrim Eye Drops] 2 drops OP Q3H 10 Days #10 ml Referrals: Your, primary care physician [Other] - 3-5 Days
== END 2020-09-21 16:59 | disposition home or self-care (01) ==
LOC: ED 15:50
DX: H10.89 Other conjunctivitis (principal); I10 Essential (primary) hypertension; F17.200 Nicotine dependence, unspecified, uncomplicated; Z98.890 Other specified postprocedural states; Z79.1 Long term (current) use of non-steroidal anti-inflammatories (NSAID); Z79.899 Other long term (current) drug therapy
CPT/HCPCS: 99282

== ENCOUNTER 2020-11-20 13:29 | Emergency (ER) | payer MEDICAID ==
--- NOTE | 2020-11-20 17:07 | Emergency Department Report ---
Pediatric URI - HPI Chief Complaint: Upper Respiratory Infection Stated Complaint: HEADACHE, COUGH Time Seen by Provider: 11/20/20 16:27 Duration: 4 Days Pain Location: Nose Severity: Mild Symptoms: Yes Rhinorrhea, Yes Cough, Yes Able to Tolerate Fluids, Yes Good Urine Output, Yes Listless Behavior, No Sore Throat, No Ear Pain, No Shortness of Breath, No Sick Contacts Other History: 55-year-old -[place] male presents to the emergency room concern for sinus infection. Patient states has been having headache nasal congestion cough with mucus and facial pain x4 days. Patient does admit that he smokes cigarettes. He states he has not had a fever but has cold sweats. Patient states he take Advil 200 mg x 1 dose yesterday. Patient denies any sneezing has some runny nose no eye drainage. Past medical history of hypercholesterolemia cardiac issues. ED Review of Systems ROS: Stated complaint: HEADACHE, COUGH Other details as noted in HPI Pediatric Past Medical History - Surgeries & Procedures Additional Surgical History: Facial Surgery 1987. cardiac stent - Chronic Health Problems Additional medical history: CAD ED Peds URI Exam - Exam General: Vital signs noted. No distress. Alert and acting appropriately. HEENT: Yes Moist Mucous Membranes, Yes Rhinorrhea, Yes Frontal Tenderness, Yes Maxillary Tenderness, No Pharyngeal Erythema, No Pharyngeal Exudates, No Conjuctival Injection Neck: No Adenopathy, No Supple Lungs: Yes Good Air Exchange, No Wheezes, No Ronchi, No Stridor, No Cough, No Labored Respirations, No Retractions, No Use of Accessory Muscles, No Other Abnormal Lung Sounds Heart: Yes Regular, No Murmur Abdomen: Yes Normal Bowel Sounds, No Tenderness, No Peritoneal Signs Skin: No Rash, No Eczema Neurologic: Alert and oriented, no deficits. Musculoskeletal: Unremarkable. ED Course Vital Signs 11/20/20 14:03 Temperature 98.8 F Pulse Rate 81 Respiratory 18 Rate Blood Pressure 123/83 [Left] O2 Sat by Pulse 100 Oximetry ED Medical Decision Making - Medical Decision Making 55-year-old -[place] male presents to the emergency room concern for sinus infection. Patient states has been having headache nasal congestion cough with mucus and facial pain x4 days. Patient does admit that he smokes cigarettes. He states he has not had a fever but has cold sweats. Patient states he take Advil 200 mg x 1 dose yesterday. Patient denies any sneezing has some runny nose no eye drainage. Past medical history of hypercholesterolemia cardiac issues. Patient will be treated with Keflex 500 mg p.o. twice daily. Encourage patient to use his Flonase twice a day. Ibuprofen 600 mg every 8 hours as needed for headache. Critical care attestation.: If time is entered above; I have spent that time in minutes in the direct care of this critically ill patient, excluding procedure time. ED Disposition Clinical Impression: Sinusitis, acute maxillary Disposition: - TO HOME OR SELFCARE Is pt being admited?: No Does the pt Need Aspirin: No Condition: Stable Instructions: Sinusitis, Adult, [id number] Additional Instructions: Complete antibiotics as prescribed. Ibuprofen as needed for pain. Use your Flonase nasal spray as well as take her Claritin which is [id number]. Increase your fluid intake advance your diet as tolerated. Follow-up with your primary care provider. Prescriptions: cephALEXin [Keflex] 500 mg PO Q12HR 14 Days #28 cap Referrals: Your, primary care provider [Other] - 3-5 Days Forms: Work/School Release Form(ED)
[2020-11-20 18:21] VITALS: BP 123/83
== END 2020-11-20 18:22 | disposition home or self-care (01) ==
LOC: ED 13:29
DX: J01.00 Acute maxillary sinusitis, unspecified (principal)
CPT/HCPCS: 99282

== ENCOUNTER 2021-12-27 13:46 | Emergency (ER) | payer MEDICAID ==
[2021-12-27 14:33] VITALS: BP 161/89
[2021-12-27] MEDS ORDERED: ERYTHROMYCIN 5 MG/1 GM OPHTH OINT OU ONE (17:22)
[2021-12-27] MEDS ORDERED: FLUORESCEIN 1 MG STRIP OP ONE (17:22)
[2021-12-27] MEDS ORDERED: TETRACAINE 0.5% OPHTH SOLN 4ML OU ONE (17:22)
== END 2021-12-27 21:01 | disposition left against medical advice (07) ==
LOC: ED 13:46
DX: H57.12 Ocular pain, left eye (principal); Z53.21 Procedure and treatment not carried out due to patient leaving prior to being seen by health care provider